=== PATIENT | female | born 2000 | race African-American/Black ===

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

== ENCOUNTER 2023-06-05 17:12 | Emergency (ER) | payer OTHER, MEDICAID ==
[~2023-06-05] VITALS: Ht 160 cm; Wt 42.0 kg
[2023-06-05 17:17] VITALS: TEMP 98.1; O2SAT 100
[2023-06-05] MEDS ORDERED: TETANUS, DIPHTHERIA, PERTUSSIS VAC/PF 0.5ML (>10YR OLD) IM ONE (17:30)
[2023-06-05 17:49] VITALS: BP 110/67; PULSE 86; RESP 16
[2023-06-05 17:50] LABS: CLARITY URINE CLOUDY (CLEAR); COLOR URINE DARK YELLOW (YELLOW); GLUCOSE URINE NEGATIVE (NEGATIVE); KETONES URINE TRACE (NEGATIVE); LEUKOCYTE ESTERASE URINE 2+ (NEGATIVE); NITRITE URINE NEGATIVE (NEGATIVE); OCCULT BLOOD URINE NEGATIVE (NEGATIVE); PROTEIN URINE TRACE (NEGATIVE); SPECIFIC GRAVITY URINE 1.024 (1.005-1.030)
[2023-06-05] MEDS ORDERED: CEPHALEXIN 250MG CAPSULE PO ONE (18:00)
[2023-06-05 18:06] LABS: RBC URINE 0-2 /hpf (0-2); SQUAMOUS EPITHELIAL CELL URINE 1+ /lpf (RARE/1+)
[2023-06-05 18:07] LABS: BACTERIA URINE 2+; TRICHOMONAS URINE FEW
== END 2023-06-05 18:02 | disposition left against medical advice (07) ==
LOC: ER 17:12
DX: O26.892 Other specified pregnancy related conditions, second trimester (principal); J45.909 Unspecified asthma, uncomplicated; Z3A.25 25 weeks gestation of pregnancy
CPT/HCPCS: 81003; 76805; 90715; 90471; 99285; Z7610 ×2